=== PATIENT | female | born 1960 | race Caucasian/White ===

== ENCOUNTER → 2021-01-13 | Outpatient (CLI) | payer OTHER ==
--- NOTE | 2021-01-22 10:05 | MM ---
Reason for exam: screening (asymptomatic). Last mammogram was performed 1 year and 6 months ago. History: Patient is postmenopausal and had first child at age 31. Physical Findings: A clinical breast exam by your physician is recommended on an annual basis and results should be correlated with mammographic findings. MG Screening Mammo w CAD Bilateral CC and MLO view(s) were taken. Prior study comparison: July 14, 2019, mammogram, performed at [place]. There are scattered fibroglandular densities. Benign appearing bilateral calcifications. No significant changes when compared with prior studies. ASSESSMENT: Benign, BI-RAD 2 RECOMMENDATION: Routine screening mammogram of both breasts in 1 year.
== END | disposition home or self-care (01) ==
LOC: RADMAMWWP 13:19
PROVIDERS: ATTEND Family Medicine
DX: Z12.31 Encounter for screening mammogram for malignant neoplasm of breast (principal)
CPT/HCPCS: 77067

== ENCOUNTER → 2022-06-30 | Outpatient (CLI) | payer SELFPAY ==
--- NOTE | 2022-06-30 10:30 | BD ---
EXAMINATION TYPE: Axial Bone Density DATE OF EXAM: 06/30/2022 COMPARISON: NONE CLINICAL HISTORY: 62 years year old Female. ICD-10 CODE: Z13.820 OSTEOPOROSIS Height: 5 FT 8 IN Weight: 213 FRAX RISK QUESTIONS: Alcohol (3 or more units per day): NO Family History (Parent hip fracture): NO Glucocorticoids (More than 3mos): NO (Ex: prednisone, prednisolone, methylprednisolone, dexamethasone, and hydrocortisone). History of Fracture in Adulthood: NO Secondary Osteoporosis: 1. Type 1 Diabetes: NO 2. Hyperthyroidism: NO 3. Menopause before 45: NO 4. Malnutrition: NO 5. Chronic liver disease: NO Rheumatoid Arthritis: NO Current Tobacco Use: NO RISK FACTORS HISTORY OF: Surgery to Spine/Hip(right/left)/Wrist (right/left): NO Family History of Osteoporosis: NO Active: NO Diet low in dairy products/other sources of calcium: NO Postmenopausal woman: YES Take estrogen and/or progesterone medications: NO Lost more than 2 inches in height since high school: NO Frequent falls: NO Poor Health: GOOD Hyperparathyroidism: NO Adrenal Insufficiency: NO MEDICATIONS: Additional Medications: NONE Additional History: EXAM MEASUREMENTS: Bone mineral densitometry was performed using the [employer]. Bone mineral density as measured about the Lumbar spine is: ----- L1-L4(G/cm2): 1.171 T Score Values are as follows: ----- L1: 0.7 ----- L2: -0.8 ----- L3: -0.3 ----- L4: 0.0 ----- L1-L4: -0.1 BASELINE Bone mineral density about the R hip (g/cm2): 1.033 Bone mineral density about the L hip (g/cm2): 1.066 T Score values are as follows: -----R Neck: 0.0 -----L Neck: 0.2 -----R Total: 0.1 -----L Total: 0.7 BASELINE FRAX%s: The graph provided illustrates a 6.3 % chance for a major osteoporotic fx and a 0.2 % chance for the hips probability for fx in 10 years time. IMPRESSION: Normal (Values between +1 and -1 indicate normal bone mass). Consider repeating this study in 5 year s or sooner if there is some new clinical indication. NOTE: T-SCORE=SD OF THE YOUNG ADULT MEAN.
--- NOTE | 2022-07-01 07:06 | MM ---
Reason for Exam: Screening (asymptomatic). Last mammogram was performed 1 year(s) and 6 month(s) ago. Patient History: Menarche at age 9. First Full-Term at age 31. Late child-bearing (after 30). Postmenopausal. Risk Values: Christal 5 year model risk: 2.4%. NCI Lifetime model risk: 9.7%. Prior Study Comparison: 07/14/2019 Screening Mammogram, [place]. 01/13/2021 Bilateral Screening Mammogram, [facility]. Tissue Density: There are scattered fibroglandular densities. Findings: Analyzed By CAD. Chronic nodularity on the left. A few scattered benign round calcifications also on the left. No significant change from prior exams. Overall Assessment: Benign, BI-RAD 2 Management: Screening Mammogram of both breasts in 1 year. 1. Patient should continue monthly self breast exams. 2. A clinical breast exam by your physician is recommended on an annual basis. 3. This exam should not preclude additional follow-up of suspicious palpable abnormalities. Electronically signed and approved by: Devonte Linares M.D. Radiologist
== END | disposition home or self-care (01) ==
LOC: RADMAMWWP 06:56
PROVIDERS: ATTEND Family Medicine
DX: Z12.31 Encounter for screening mammogram for malignant neoplasm of breast (principal)
CPT/HCPCS: 77067; 77080

== ENCOUNTER → 2023-03-17 | Outpatient (CLI) | payer MEDICARE ==
--- NOTE | 2023-03-17 10:24 | US ---
EXAMINATION TYPE: US abdomen complete DATE OF EXAM: 03/17/2023 COMPARISON: NONE CLINICAL INDICATION: Female, 63 years old with history of R10.13 EPIGASTRIC PAIN; bloating x 1.5yrs, 20lb weight gain TECHNIQUE: Multiple sonographic images of the abdomen are obtained. FINDINGS: EXAM MEASUREMENTS: Liver Length: 16.9 cm. Minimally enlarged. Normal less than 15.5 cm. Gallbladder Wall: 0.2 cm CBD: 0.7 cm Spleen: 14.4 cm. Mild splenomegaly. Normal less than 12.5 cm. Right Kidney: 10.0 x 4.2 x 4.0 cm Left Kidney: 9.0 x 3.6 x 4.7 cm Pancreas: portions seen appear wnl Liver: 1.1 x 1.0 x 1.0cm probable cyst seen within right lobe, wnl Gallbladder: wnl Evidence for sonographic Moreland's sign: no CBD: wnl Spleen: wnl Right Kidney: wnl Left Kidney: wnl Upper IVC: wnl Abd Aorta: proximal portions obscured IMPRESSION: 1. Mild fatty infiltrated liver. 2. Mild hepatosplenomegaly.
== END | disposition home or self-care (01) ==
LOC: RADUSWWP 08:11
PROVIDERS: ATTEND Family Medicine
DX: K76.0 Fatty (change of) liver, not elsewhere classified (principal); R16.2 Hepatomegaly with splenomegaly, not elsewhere classified
CPT/HCPCS: 76700

== ENCOUNTER → 2023-03-24 | Outpatient (CLI) | payer MEDICARE ==
--- NOTE | 2023-03-24 12:56 | CA ---
Exercise Stress Test Report Name: Joseline Johnson Exam Date: 03/24/2023 09:28 Exam Location: [facility] Ht (in): 68 Wt (lb): 210 BSA: 2.09 Ordering Phys: Elsie Mayorga DO Referring Phys: elsie mayorga,, Technologist: Matthew Riojas Age: 63 Gender: F : 1960 Procedure CPT: Indications: z82.49 ICD-10 Codes: Patient History: Medications: NONE Meds past 24 hrs: Pretest Chest Pain: STRESS TEST Isauro Protocol Exercise Duration (min:sec): 04:[address] Depressions (mm): Angina Score: Mack Score: Resting HR (bpm): 90 Peak HR (bpm): 140 Resting BP (mmHg): 137 / 79 Peak BP (mmHg): 204 / 84 MPHR: 155 Target HR: 132 % MPHR: 90 METS: 7.1 Total Dose: Peak Dose: Atropine: Double Product: 88101 BP Response: Stress Termination: Reached target heart rate/SHORT OF BREATH Stress Symptoms: SHORT OF BREATH Stress Summary: ECG ANALYSIS Resting ECG: Stress ECG: CONCLUSIONS Excellent exercise tolerance Normal EKG in response to exercise Dr. José Garza MD (Electronically Signed) Final Date: 24 March 2023 12:55
== END | disposition home or self-care (01) ==
LOC: RADNMMAIN 08:40
PROVIDERS: ATTEND Family Medicine
DX: R07.9 Chest pain, unspecified (principal); Z82.49 Family history of ischemic heart disease and other diseases of the circulatory system
CPT/HCPCS: 93017

== ENCOUNTER → 2023-07-06 | Outpatient (CLI) | payer MEDICARE ==
--- NOTE | 2023-07-07 23:21 | MM ---
Reason for Exam: Screening (asymptomatic). Last screening mammogram was performed 12 month(s) ago. Patient History: Menarche at age 9. First Full-Term at age 31. Late child-bearing (after 30). Postmenopausal. Risk Values: Christal 5 year model risk: 2.5%. NCI Lifetime model risk: 9.4%. Prior Study Comparison: 07/14/2019 Screening Mammogram, [place]. 01/13/2021 Bilateral Screening Mammogram, [facility]. 06/30/2022 Bilateral MG screening mammo w CAD, [facility]. Tissue Density: There are scattered fibroglandular densities. Findings: Analyzed By CAD. Chronic low-density nodularity on the left. Benign bilateral oil cyst calcifications. There is no suspicious group of microcalcifications or new suspicious mass in either breast. Overall Assessment: Benign, BI-RAD 2 Management: Screening Mammogram of both breasts in 1 year. . Patient should continue monthly self-breast exams. A clinical breast exam by your physician is recommended on an annual basis. This exam should not preclude additional follow-up of suspicious palpable abnormalities. Note on Christal scores and lifetime risk: 1. A Christal score greater than 3% is considered moderate risk. If this is the case, consider specialist referral to assess eligibility for a risk reducing agent. 2. If overall lifetime risk for the development of breast cancer is 20% or higher, the patient may qualify for future screening with alternating mammogram and breast MRI. Electronically signed and approved by: Devonte Linares M.D. Radiologist
== END | disposition home or self-care (01) ==
LOC: RADMAMWWP 07:01
PROVIDERS: ATTEND Family Medicine
DX: Z12.31 Encounter for screening mammogram for malignant neoplasm of breast (principal); Z78.0 Asymptomatic menopausal state
CPT/HCPCS: 77063; 77067

== ENCOUNTER → 2024-07-07 | Outpatient (CLI) | payer MEDICARE ==
--- NOTE | 2024-07-27 14:21 | MM ---
Reason for Exam: Screening (asymptomatic). Last screening mammogram was performed 12 month(s) ago. Patient History: Menarche at age 9. First Full-Term at age 31. Late child-bearing (after 30). Postmenopausal. Risk Values: Christal 5 year model risk: 2.5%. NCI Lifetime model risk: 9.0%. Prior Study Comparison: 01/13/2021 Bilateral Screening Mammogram, [facility]. 06/30/2022 Bilateral MG screening mammo w CAD, [facility]. 07/06/2023 Bilateral MG 3D screening mammo w/cad, [facility]. Tissue Density: The breasts are almost entirely fatty. Findings: Analyzed By CAD. Right breast: There is no suspicious group of microcalcifications or new suspicious mass. Left breast: There is no suspicious group of microcalcifications or new suspicious mass. Overall Assessment: Negative, BI-RAD 1 Management: Screening Mammogram of both breasts in [address] [facility] will attempt to contact patient to return for supplemental views and ultrasound if indicated. Patient should continue monthly self-breast exams. A clinical breast exam by your physician is recommended on an annual basis. This exam should not preclude additional follow-up of suspicious palpable abnormalities. Note on Christal scores and lifetime risk: 1. A Christal score greater than 3% is considered moderate risk. If this is the case, consider specialist referral to assess eligibility for a risk reducing agent. 2. If overall lifetime risk for the development of breast cancer is 20% or higher, the patient may qualify for future screening with alternating mammogram and breast MRI. Electronically signed and approved by: Tino Dalton DO
== END | disposition home or self-care (01) ==
LOC: RADMAMWWP 12:00
PROVIDERS: ATTEND Family Medicine
DX: Z12.31 Encounter for screening mammogram for malignant neoplasm of breast (principal); Z78.0 Asymptomatic menopausal state; R92.313 Mammographic fatty tissue density, bilateral breasts
CPT/HCPCS: 77063; 77067